=== PATIENT | male | born 1935 | race Caucasian/White ===

== ENCOUNTER → 2018-02-17 09:40 | Outpatient (CLI) | payer MEDICARE, OTHER, SELFPAY ==
[2018-02-17 10:16] LABS: Hemoglobin A1C% w Est Avg Glu 5.6 % (4.0-6.0)
== END ==
PROVIDERS: PCP Student in an Organized Health Care Education/Training Program; Visit Provider Student in an Organized Health Care Education/Training Program
DX: E11.9 Type 2 diabetes mellitus without complications (principal)
CPT/HCPCS: 36415; 83036

== ENCOUNTER → 2018-11-04 06:57 | Outpatient (CLI) | payer MEDICARE, OTHER, SELFPAY ==
[2018-11-04 09:26] LABS: Alanine Aminotransferase 35 IU/L (21-72); Albumin 4.2 g/dL (3.5-5.0); Albumin Globulin Ratio 1.4 (1.0-2.8); Alkaline Phosphatase 56 U/L (38-126); Aspartate Aminotransferase 35 IU/L (17-59); Bilirubin Total 1.2 mg/dL (0.2-1.3); Blood Urea Nitrogen 18 mg/dL (9-20); Calcium 9.1 mg/dL (8.4-10.2); Carbon Dioxide 29 mmol/L (22-32); Chloride 105 mmol/L (98-107); Cholesterol 125 mg/dL (140-199); Estimated Glomerular Filt Rate > 60.0 mL/min (>60); Globulin 3.1 g/dL (1.7-4.1); Glucose 114 mg/dL (80-110); HDL Cholesterol 60 mg/dL (40-60); HEMOLYSIS < 15 (0-50); LDL Cholesterol Calculated 53 mg/dL (<100); Sodium 141 mmol/L (137-145); Total Protein 7.3 g/dL (6.3-8.2); Triglycerides 60 mg/dL (35-150)
== END ==
PROVIDERS: Family Provider Student in an Organized Health Care Education/Training Program; PCP Student in an Organized Health Care Education/Training Program; Visit Provider Internal Medicine Cardiovascular Disease
DX: I10 Essential (primary) hypertension (principal)
CPT/HCPCS: 36415; 80053; 80061

== ENCOUNTER → 2018-12-29 11:55 | Outpatient (CLI) | payer MEDICARE, OTHER, SELFPAY ==
--- NOTE | 2018-12-29 | DI.US.S_ITS ---
PROCEDURE: US CAROTID DOPPLER BI INDICATIONS: STENOSIS TECHNIQUE: Color and pulse Doppler interrogation was performed of both carotid systems, with image documentation and velocity measurements. COMPARISON: [facility], , CAROTID ARTERY DOPPLER BILAT, 03/19/2011, 10:09. FINDINGS: Stenosis calculations are based on SRU (Society of Radiologists in Ultrasound) criteria. Right side: Brachial blood pressure: 123/60 mm Hg. Common carotid artery peak systolic velocity: 149 cm/sec. Internal carotid artery peak systolic velocity: 93 cm/sec. Internal carotid artery end diastolic velocity: 19 cm/sec. External carotid artery peak systolic velocity: 100 cm/sec. ICA/CCA peak systolic ratio: 0.6. Bartlett scale imaging description: Minimal scattered plaque. Percent internal carotid artery stenosis: Less than 50%. Vertebral artery: Flow direction is antegrade. Left side: Brachial blood pressure: 120/58 mm Hg. Common carotid artery peak systolic velocity: 166 cm/sec. Internal carotid artery peak systolic velocity: 89 cm/sec. Internal carotid artery end diastolic velocity: 18 cm/sec. External carotid artery peak systolic velocity: 117 cm/sec. ICA/CCA peak systolic ratio: 0.5. Bartlett scale imaging description: Mild scattered plaque. Percent internal carotid artery stenosis: Less than 50%. Vertebral artery: Flow direction is antegrade. IMPRESSION: Stable less than 50% bilateral internal carotid artery stenosis. Greater than 50% stenosis of the common carotid arteries bilaterally. Dictated by: Og GLORIA Interpreted: Marika Hein MD on 12/29/2018 at 14:26 Approved by: Marika Hein M.D. on 12/29/2018 at 14:42
== END ==
PROVIDERS: PCP Student in an Organized Health Care Education/Training Program; Visit Provider Internal Medicine Cardiovascular Disease
DX: I65.23 Occlusion and stenosis of bilateral carotid arteries (principal)
CPT/HCPCS: 93880

== ENCOUNTER → 2019-02-12 10:40 | Outpatient (CLI) | payer MEDICARE, OTHER, SELFPAY ==
[2019-02-12 11:29] LABS: Hemoglobin A1C% w Est Avg Glu 5.6 % (4.0-6.0)
[2019-02-12 12:02] LABS: Blood Urea Nitrogen 18 mg/dL (9-20); Calcium 9.8 mg/dL (8.4-10.2); Carbon Dioxide 29 mmol/L (22-32); Chloride 102 mmol/L (98-107); Estimated Glomerular Filt Rate > 60.0 mL/min (>60); Glucose 111 mg/dL (80-110); HEMOLYSIS < 15 (0-50); Potassium 4.4 mmol/L (3.4-5.1); Sodium 140 mmol/L (137-145)
== END ==
PROVIDERS: PCP Student in an Organized Health Care Education/Training Program; Visit Provider Student in an Organized Health Care Education/Training Program
DX: E11.9 Type 2 diabetes mellitus without complications (principal); I10 Essential (primary) hypertension
CPT/HCPCS: 36415; 80048; 83036

== ENCOUNTER → 2019-07-29 14:56 | Outpatient (CLI) | payer MEDICARE, OTHER, SELFPAY ==
[2019-07-29 17:11] LABS: Hemoglobin A1C% w Est Avg Glu 5.9 % (4.0-6.0)
== END ==
PROVIDERS: PCP Student in an Organized Health Care Education/Training Program; Referring Provider Student in an Organized Health Care Education/Training Program; Visit Provider Student in an Organized Health Care Education/Training Program
DX: E11.9 Type 2 diabetes mellitus without complications (principal)
CPT/HCPCS: 36415; 83036

== ENCOUNTER → 2019-07-30 08:41 | Outpatient (CLI) | payer MEDICARE, OTHER, SELFPAY ==
[2019-07-30 09:24] LABS: Creatinine Urine Random 68.9 mg/dL
[2019-07-30 09:28] LABS: Microalbumi Creatinin Ratio Ur 23.2 ug/mg CR (<30); Microalbumin Urine Random 1.6 mg/dL (0-1.6)
== END ==
PROVIDERS: PCP Student in an Organized Health Care Education/Training Program; Referring Provider Student in an Organized Health Care Education/Training Program; Visit Provider Student in an Organized Health Care Education/Training Program
DX: E11.9 Type 2 diabetes mellitus without complications (principal)
CPT/HCPCS: 82043; 82570

== ENCOUNTER → 2020-01-25 09:22 | Outpatient (CLI) | payer MEDICARE, OTHER, SELFPAY | PROVIDERS: PCP Student in an Organized Health Care Education/Training Program; Referring Provider Student in an Organized Health Care Education/Training Program; Visit Provider Student in an Organized Health Care Education/Training Program | DX: E11.9 Type 2 diabetes mellitus without complications (principal) | CPT/HCPCS: 36415; 83036 ==

== ENCOUNTER → 2020-07-27 15:31 | Outpatient (CLI) | payer MEDICARE, OTHER, SELFPAY ==
[2020-07-27 16:19] LABS: Hemoglobin A1C% w Est Avg Glu 5.9 % (4.0-6.0)
[2020-07-27 16:29] LABS: Creatinine Urine Random 104.1 mg/dL
[2020-07-27 16:33] LABS: Microalbumi Creatinin Ratio Ur 14.4 ug/mg CR (<30); Microalbumin Urine Random 1.5 mg/dL (0-1.6)
== END ==
PROVIDERS: PCP Student in an Organized Health Care Education/Training Program; Referring Provider Student in an Organized Health Care Education/Training Program; Visit Provider Student in an Organized Health Care Education/Training Program
DX: E11.9 Type 2 diabetes mellitus without complications (principal)
CPT/HCPCS: 36415; 82043; 82570; 83036

== ENCOUNTER → 2021-01-19 06:30 | Outpatient (CLI) | payer MEDICARE, OTHER, SELFPAY ==
[2021-01-19 08:36] LABS: Alanine Aminotransferase 35 IU/L (<50); Albumin 4.3 g/dL (3.5-5.0); Albumin Globulin Ratio 1.5 (1.0-2.8); Alkaline Phosphatase 55 U/L (38-126); Aspartate Aminotransferase 36 IU/L (17-59); BUN Creatinine Ratio 18.7 (6-22); Bilirubin Total 0.8 mg/dL (0.2-1.3); Blood Urea Nitrogen 17 mg/dL (9-20); Calcium 9.3 mg/dL (8.4-10.2); Carbon Dioxide 30 mmol/L (22-32); Chloride 103 mmol/L (98-107); Cholesterol 134 mg/dL (140-199); Estimated Glomerular Filt Rate > 60.0 mL/min (>60); Globulin 2.9 g/dL (1.7-4.1); Glucose 118 mg/dL (80-110); HDL Cholesterol 57 mg/dL (40-60); HEMOLYSIS < 15 (0-50); LDL Cholesterol Calculated 60 mg/dL (<100); Potassium 4.1 mmol/L (3.4-5.1); Sodium 139 mmol/L (137-145); Total Protein 7.2 g/dL (6.3-8.2); Triglycerides 83 mg/dL (35-150)
== END ==
PROVIDERS: PCP Student in an Organized Health Care Education/Training Program; Referring Provider Internal Medicine Cardiovascular Disease; Visit Provider Internal Medicine Cardiovascular Disease
DX: I10 Essential (primary) hypertension (principal)
CPT/HCPCS: 36415; 80053; 80061

== ENCOUNTER 2021-03-30 14:41 | Emergency (ER) | payer MEDICARE, OTHER, SELFPAY ==
[2021-03-30] VITALS (9 sets, daily range): BP systolic 144–166; BP diastolic 66–74; PULSE 65–71; RESP 16–23; TEMP 36.3; O2SAT 97–99
--- NOTE | 2021-03-30 | DI.CT.S_ITS ---
PROCEDURE: CT CERVICAL SPINE WO CON INDICATIONS: fall TECHNIQUE: Noncontrast 3 mm thick sections acquired from the skull base to the T4 level. Sagittal and coronal reformats were then constructed. For radiation dose reduction, the following was used: automated exposure control, adjustment of mA and/or kV according to patient size. COMPARISON: None. FINDINGS: Image quality: Excellent. Bones: No fractures or dislocations. Visualized superior ribs are intact. At least moderate cervical spondylosis. Multilevel facet arthropathy. Multilevel uncovertebral joint hypertrophy. Bilateral significant bony foraminal narrowing from C3-C4 through C5-C6. Soft tissues: Prevertebral soft tissues are normal in thickness. No paravertebral hematomas. No apical pneumothoraces. Pacemaker. Mild bilateral apical pleural parenchymal scarring. IMPRESSION: Cervical spondylitic change. No evidence acute cervical fracture or dislocation. Dictated by: Elton Griffin M.D. on 03/30/2021 at 15:01 Approved by: Elton Griffin M.D. on 03/30/2021 at 15:05
--- NOTE | 2021-03-30 | DI.CT.S_ITS ---
PROCEDURE: CT ANGIO HEAD AND NECK INDICATIONS: fall, cofussion TECHNIQUE: After the administration of intravenous contrast, 1 mm thick sections acquired from the aortic arch through the [place]. Post-contrast 4.5 mm thick sections then re-acquired from the foramen magnum to the vertex. 3-dimensional ublhhol-wcznljdrt-grtesuohjk (MIP) and/or volume rendering reformats were acquired of the central intracranial vasculature and neck separately. COMPARISON: [facility], CT, CT STROKE, 03/30/2021, 14:42. FINDINGS: Image quality: Excellent. BRAIN: CSF spaces: Ventricles are normal in size and shape. Basal cisterns are patent. No extra-axial fluid collections. Brain: No midline shift. No intracranial bleeds or masses. Bartlett-white matter interface appears intact. Age-related volume loss and small vessel ischemic change. Skull and face: Calvarium and facial bones appear intact, without suspicious lesions. Orbits appear normal. Sinuses: Sinuses and mastoids are clear. HEAD CT ANGIOGRAPHY: Anterior circulation: Intracranial internal carotid arteries are normal in size and flow. The flow within the paired anterior cerebral arteries is normal and symmetric. The flow within the middle cerebral arteries is normal and symmetric. The anterior communicating artery is seen. No aneurysms are seen. Posterior circulation: Visualized portions of the vertebral arteries demonstrate normal caliber, and join to form a normal appearing basilar artery. Flow within the posterior cerebral arteries is normal and symmetric. No aneurysms are seen. NECK CT ANGIOGRAPHY: Carotid system: The great vessels demonstrate a conventional anatomy as they arise from the aortic arch. The origins of the common carotid arteries appear patent. The common carotid arteries demonstrate normal caliber and courses. The bifurcation regions are both widely patent. Mild bilateral internal carotid artery stenotic disease. Posterior circulation: The origins of the vertebral arteries both appear widely patent. The more superior extracranial portions of both vertebral arteries also demonstrate normal courses and calibers. They join to form a normal appearing basilar artery. Soft tissues: Visualized neck soft tissues demonstrate no suspicious abnormalities. Bones: No suspicious bony lesions. Visualized cervical spine appears normally aligned. IMPRESSION: 1. Age-related volume loss and small vessel ischemic change. 2. No evidence of acute stroke, hemorrhage, or mass. 3. Unremarkable CTA head. No stenosis, occlusion, aneurysms, or focal filling defects. 4. Mild bilateral proximal internal carotid artery stenotic disease. Comment: Findings were discussed with Dr. Barriga on a 03/30/2021 at 1510 hours Any quantitative measurements of stenosis were performed using NASCET criteria. Dictated by: Elton Griffin M.D. on 03/30/2021 at 15:06 Approved by: Elton Griffin M.D. on 03/30/2021 at 15:12
--- NOTE | 2021-03-30 | DI.CT.S_ITS ---
PROCEDURE: CT STROKE INDICATIONS: fall, confussion TECHNIQUE: Noncontrast 4.5 mm thick angled axial sections acquired from the foramen magnum to the vertex, with coronal reformats. For radiation dose reduction, the following was used: automated exposure control, adjustment of mA and/or kV according to patient size. COMPARISON: CT, HEAD WITHOUT CONTRAST, 06/27/2015, 13:06. FINDINGS: Image quality: Excellent. CSF spaces: Basal cisterns are patent. No extra-axial fluid collections. The ventricles are symmetric in size and shape. Brain: No intracranial bleeds or masses. There is cerebral volume loss for age, with resultant ventricular and sulcal prominence. There are periventricular and deep white matter chronic small vessel ischemic changes. There is intracranial internal carotid artery atherosclerosis. Skull and face: Calvarium and visualized facial bones appear intact, without suspicious lesions. Left frontal soft tissue contusion. Sinuses: Visualized sinuses and mastoids are clear. IMPRESSION: 1. No acute intracranial abnormalities. No intracranial bleed or skull fractures. 2. Cerebral volume loss and chronic microvascular ischemic changes. The result was discussed with Dr. Barriga. This study fulfills neurological imaging criteria for inclusion or exclusion of acute stroke therapies based on available published neurological guidelines. Dictated by: Shirley Kessler M.D. on 03/30/2021 at 14:59 Approved by: Shirley Kessler M.D. on 03/30/2021 at 15:04
--- NOTE | 2021-03-30 14:52 | ED_ITS ---
HPI - Neuro Symptoms/Deficit General Chief Complaint: Trauma Stated Complaint: fall from 2nd step Time Seen by Provider: 03/30/21 14:49 History of Present Illness HPI Narrative: The patient arrives by EMS with a fall, and head injury. He is talking. He has no memory to his day leading up until now. Paramedics noticed asymmetric pupils. He is moving extremities at this time. His described as patient been out of it all day. There is no obvious focal/lateral deficit. After the fall he was unconscious for 5 minutes. He is now alert. He a base commands. He was called as a code stroke because the asymmetric pupils and confusion. He now has a head injury. He is not anticoagulated. After his arrives, the situation clears. He has dementia, he has a poor memory. He was about to walk down steps at home, he paused. His is unsure what happened. He fell 2 steps, hitting his head. He has a left forehead laceration. He had LOC for 5 minutes, but is awake when paramedics arrived. He has a pacemaker. He has no notable rhythm disturbance under textile supervisor care or here. It appears that he stumbled on the steps, fell, and suffered a concussion. However, the patient cannot remember the event. The patient is alert now, but unsure why he is in the ER. The cannot identify whether he passed out before falling or simply tripped. Related Data Home Medications Medication Instructions Recorded Confirmed finasteride 5 mg tablet 5 mg PO DAILY 12/22/18 09/20/20 Previous Rx's Medication Instructions Recorded atorvastatin 10 mg tablet 10 mg PO DAILY #30 tab 10/28/17 terazosin 10 mg capsule 10 mg PO DAILY #30 cap 10/28/17 lisinopril 5 mg tablet (Zestril) 5 mg PO QDAY #90 tab 06/21/20 zolpidem 5 mg tablet 5 mg PO BEDTIME PRN #30 tab 10/19/20 Allergies Allergy/AdvReac Type Severity Reaction Status Date / Time No Known Drug Allergies Allergy Verified 03/30/21 14:57 Review of Systems Review of Systems Narrative: See HPI. No recent illness. Patient has very poor memory, he cannot remember the fall or the transport to the ER. Patient History Medical History (Updated 03/30/21 @ 17:27 by Rick Barriga MD) Acquired cystic kidney disease (Unknown) Allergic rhinitis (Unknown) Benign neoplasm of esophagus (Unknown) BPH (benign prostatic hyperplasia) (Unknown) Cardiac arrhythmia (~2010) Colon polyps (Unknown) COPD (chronic obstructive pulmonary disease) (Unknown) Dementia Depression Diabetes (Unknown) Hyperlipemia (Unknown) Hypertension (Unknown) Sleep apnea (Unknown) Surgical History H/O colonoscopy with polypectomy (Unknown) History of angioplasty S/P placement of cardiac pacemaker (2009) Status post hernia repair Status post transurethral resection of prostate Family History Father Cancer Mother No problems noted. Sister Cancer Social History Smoking Status: Never smoker Smoking Status: Never smoker Exam Initial Vital Signs Initial Vital Signs: Vital Signs Pulse Rate 71 03/30/21 14:51 Pulse Oximetry 97 03/30/21 14:51 Const General: cooperative, comfortable and well developed HENMT Head: other (2 cm left frontal/parietal laceration. No foreign body. Skull is intact.) Ears: TM's normal bilaterally Nose: nares normal Face and sinus: dry mucous membranes Mouth: oral mucosae normal Teeth and gingiva: dentition normal Throat: posterior oropharynx normal Eyes General: appearance normal, both eyes and all related structures Sclera: sclerae normal Cornea: corneas normal Pupils: pupil size on the right 3 and on the left 4 EOM: EOM intact bilaterally Other: Pupil findings appear to be physiologic anisocoria. Neck Neck: normal visual inspection, full ROM, No tender and No JVD Chest Chest: normal inspection of the chest and No localized rib tenderness with anteroposterior compression Resp Effort & Inspection: normal respiratory effort Auscultation: clear to auscultation bilaterally Percussion: percussion normal Cardio Rate: regular rate Rhythm: regular rhythm Heart Sounds: S1 normal and S2 normal GI Inspection: normal to inspection Palpation: soft, No guarding, No mass and No tender Auscultation: normal bowel sounds Back/Spine/Pelvis Back: normal to inspection, No back tenderness and other (No obvious injury) Skin General: no rashes or lesions noted Neuro General: patient alert, patient awake, oriented (Person.) and no focal motor deficits Cranial Nerves: CN's II-XI intact bilaterally Speech: speech normal Motor: muscle tone normal throughout Extrem General: normal to inspection Other: No evidence of upper extremity injury. No hip or pelvis tenderness. Full range of motion throughout lower extremities without evidence of trauma. Psych Other: Confused. Poor historian. Pleasant. Obeys commands. Procedures Laceration Repair Laceration 1: Site: scalp Side (If applicable): left Size (cm): 2 Description: linear Pre-repair: wound explored and irrigated extensively Skin layer closed with: dermabond Course Course Course Narrative: The patient arrives in C-spine immobilization. He is neurologically intact upon arrival. CT of the neck was utilized to clear him from C-spine immobilization. Orders Ordered: ED Orders 03/30/21 14:50 BNP [NT-proBNP (BNP-Adult 18+)] Stat Basic Metabolic Panel Stat Complete Blood Count AUTO DIFF Stat Troponin & CK Cardiac Panel Stat 03/30/21 14:51 Urine Drug Screen, Rapid Stat EKG-12 Lead Stat Sodium Chloride (Normal Saline 0.9%) 1,000 mls @ 150 mls/hr IV CONT JAI Last Admin: 03/30/21 16:44 Dose: Not Given Documented by: MONO Vital Signs Vital signs: Vital Signs - 8 hr 03/30/21 14:51 03/30/21 14:53 03/30/21 15:00 Temperature 97.3 F L Pulse Rate 71 66 65 Respiratory Rate 16 Blood Pressure 163/72 H 148/67 H Pulse Oximetry 97 98 97 03/30/21 15:25 03/30/21 15:30 03/30/21 15:31 Temperature Pulse Rate 70 67 66 Respiratory Rate 22 22 22 Blood Pressure 166/74 H 144/67 H Pulse Oximetry 98 99 98 03/30/21 16:00 03/30/21 16:30 Temperature Pulse Rate 67 68 Respiratory Rate 22 Blood Pressure 145/66 H 147/67 H Pulse Oximetry 99 99 MDM - Neuro Symptoms/Deficit Lab Data Result diagrams: 03/30/21 14:50 03/30/21 14:50 Labs: Lab Results 03/30/21 03/30/21 03/30/21 Range/Units 14:50 14:50 14:50 WBC 4.6 (4.5-11.0) X10^3/uL RBC 3.24 L (4.5-5.9) X10^6/uL Hgb 11.1 L (13.5-17.5) g/dL Hct 32.5 L (41-53) % MCV 100.4 H (80-100) fL MCH 34.3 H (26-34) PG MCHC 34.1 (30-36) % RDW 13.2 (11.6-14.8) % Plt Count 138 L (150-400) X10^3/uL Neut % (Auto) 67.3 (50-75) % Lymph % (Auto) 22.8 L (25-40) % [place] % (Auto) 8.3 (3-14) % Eos % (Auto) 1.0 L (2-4) % Baso % (Auto) 0.6 (0-2) % Neut # (Auto) 3100 (3679-2691) /uL Lymph # (Auto) 1000 L (7112-2736) /uL [place] # (Auto) 400 (0-900) /uL Eos # (Auto) 0 (0-450) /uL Baso # (Auto) 0 (0-100) /uL Sodium 135 L (137-145) mmol/L Potassium 3.8 (3.4-5.1) mmol/L Chloride 100 (98-107) mmol/L Carbon Dioxide 28 (22-32) mmol/L BUN 17 (9-20) mg/dL Creatinine 0.94 (0.66-1.25) mg/dL Estimated GFR > 60.0 (>60) mL/min BUN/Creatinine Ratio 18.1 (6-22) Glucose 123 H (80-110) mg/dL Calcium 8.6 (8.4-10.2) mg/dL Total Creatine Kinase 51 L (55-170) U/L CK-MB (CK-2) TNP CK-MB (CK-2) Rel Index TNP Troponin I < 0.012 (0.01-0.034) ng/mL NT-Pro-B Natriuret Pep 236 (<450) pg/mL Point of Care Testing Glucose POC [address] scan - head: Radiologist's Impression: Verbal report from Radiology, age-related changes but no acute findings. CTA head and neck:: Radiologist's Impression: Verbal report from Radiology, no acute findings concerning for source of CVA. CT - cervical spine: Radiologist's Impression: Verbal report from Radiology, no acute findings. ECG Data Attestation: I personally reviewed and interpreted this ECG as follows: (residential monitor: Paced rhythm. No ectopy.) MDM Narrative Medical decision making narrative: The patient has been clinically stable since arrival. He has been cleared from CVA, or significant head or neck injury. Laceration has been repaired. Vitals have been normal. Cardiac monitoring has been normal. Discharge Plan Departure Patient Disposition: Home Clinical Impression: Laceration of scalp, Presence of cardiac pacemaker, Dementia, Concussion Instructions: Concussion, DI for Laceration Repair of the Scalp Activity Restrictions/Additional Instructions: Tylenol as needed for headaches. Return to ER if symptoms worsen. Follow-up with your chemistry lab instructor. You need to have the pacemaker checked. This can often be done over the phone. Return here as needed. Prescriptions: No Action atorvastatin 10 mg tablet 10 mg PO DAILY Qty: 30 RF: 0 terazosin 10 mg capsule 10 mg PO DAILY Qty: 30 RF: 0 finasteride 5 mg tablet 5 mg PO DAILY RF: 0 lisinopril [Zestril] 5 mg tablet 5 mg PO QDAY Qty: 90 RF: 3 zolpidem 5 mg tablet 5 mg PO BEDTIME PRN (Reason: insomnia) Qty: 30 RF: 5 Referrals: Sb Serna MD [Primary Care Provider] -
[2021-03-30 15:15] LABS: Add Manual Diff / Slide Review NO; Basophils Absolute Auto 0 /uL (0-100); Basophils Percent Auto 0.6 % (0-2); Eosinophils Absolute Auto 0 /uL (0-450); Hematocrit 32.5 % (41-53); Hemoglobin 11.1 g/dL (13.5-17.5); Lymphocytes Absolute Auto 1000 /uL (1100-4500); Lymphocytes Percent Auto 22.8 % (25-40); Mean Corpuscular HGB Conc 34.1 % (30-36); Mean Corpuscular Hemoglobin 34.3 PG (26-34); Mean Corpuscular Volume 100.4 fL (80-100); Monocytes Absolute Auto 400 /uL (0-900); Monocytes Percent Auto 8.3 % (3-14); Neutrophils Absolute Auto 3100 /uL (1500-7000); Neutrophils Percent Auto 67.3 % (50-75); Platelet Count 138 X10^3/uL (150-400); Red Blood Cell Count 3.24 X10^6/uL (4.5-5.9); Red Cell Distribution Width 13.2 % (11.6-14.8); White Blood Cell Count 4.6 X10^3/uL (4.5-11.0)
--- NOTE | 2021-03-30 15:20 | PC.NURSE ---
left pupil not equal,reactive or round
[2021-03-30 15:21] LABS: BUN Creatinine Ratio 18.1 (6-22); Blood Urea Nitrogen 17 mg/dL (9-20); Calcium 8.6 mg/dL (8.4-10.2); Carbon Dioxide 28 mmol/L (22-32); Chloride 100 mmol/L (98-107); Estimated Glomerular Filt Rate > 60.0 mL/min (>60); Glucose 123 mg/dL (80-110); HEMOLYSIS < 15 (0-50); Potassium 3.8 mmol/L (3.4-5.1); Sodium 135 mmol/L (137-145)
[2021-03-30 15:42] LABS: Creatine Kinase 51 U/L (55-170)
[2021-03-30 15:55] LABS: NT-proBNP (BNP-Adult 18+) 236 pg/mL (<450); Troponin I < 0.012 ng/mL (0.01-0.034)
[2021-03-30] MEDS: BACITRACIN OINT 0.9 GM PCKT 4 APPLIC TOP (17:17)
== END 2021-03-30 17:39 | disposition home or self-care (01) ==
PROVIDERS: Emergency Provider Emergency Medicine; PCP Student in an Organized Health Care Education/Training Program
DX: S06.0X9A Concussion with loss of consciousness of unspecified duration, initial encounter (principal); W17.89XA Other fall from one level to another, initial encounter; S01.01XA Laceration without foreign body of scalp, initial encounter; Z95.0 Presence of cardiac pacemaker; F03.90 Unspecified dementia, unspecified severity, without behavioral disturbance, psychotic disturbance, mood disturbance, and anxiety
CPT/HCPCS: 70450; 70496; 70498; 72125; 80048; 82550; 82962; 83880; 84484; 85025; 93005; 93010; 99284; 99285; Q9967

== ENCOUNTER 2021-04-01 06:44 | Emergency (ER) | payer MEDICARE, OTHER, SELFPAY ==
--- NOTE | 2021-04-01 06:55 | DI.RAD.S_ITS ---
PROCEDURE: XR RIBS LT MIN 3V W CXR1V INDICATIONS: fall with pain to left ribs TECHNIQUE: 2 views of the left ribs were acquired, along with a single view chest. COMPARISON: None. FINDINGS: Surgical changes and devices: Left chest wall pacemaker is seen, the leads are noted in the region of right atrium and right ventricle. Bones and chest wall: No definite displaced rib fractures or dislocations. Very subtle contour irregularity involving left posterior lateral 4th and 5th ribs are seen which may represent very subtle nondisplaced rib fractures. No suspicious bony lesions. Overlying soft tissues appear unremarkable. Lungs and pleura: No pleural effusions or pneumothorax. Lungs appear clear. Mediastinum: Mediastinal contours appear normal. Heart size is mildly enlarged. IMPRESSION: No obvious displaced left rib fracture is identified. Questionable contour irregularity involving left posterior lateral 4th and 5th ribs which may represent subtle nondisplaced rib fracture. No focal infiltrate, pleural effusion or pneumothorax. Dictated by: Von Alcantar M.D. on 04/01/2021 at 8:12 Approved by: Von Alcantar M.D. on 04/01/2021 at 8:15
[2021-04-01 06:57] VITALS: BP 165/70; PULSE 95; RESP 15; TEMP 36.6; O2SAT 98; BMI 28.1
--- NOTE | 2021-04-01 06:58 | PC.NURSE ---
Breath sounds clear and equal bilaterally
--- NOTE | 2021-04-01 07:08 | ED_ITS ---
HPI - Fall General Chief Complaint: Fall Stated Complaint: fall, concussion, left side hurts Time Seen by Provider: 04/01/21 07:07 Source: patient Mode of arrival: Ambulatory Limitations: no limitations History of Present Illness HPI Narrative: This is an 85-year-old male who comes emergency department with left-sided chest pain. Patient states he had a fall and was seen here on Friday the . Patient states that he knocked himself out and had a concussion. Patient had a head CT and CT angio which did not show any acute changes. He does not take thinners. He states he presents today because he has had left- sided chest pain into the axilla with movement and particularly when trying to push up out of chairs or roll out of the bed. Patient does not know if he has had any bruising or skin changes. He does not have a lot of pain when he tries to take a deep breath in the room but states earlier this morning he has quite uncomfortable with deep inspiration. He has not had any additional falls. He denies headaches. He denies acute vision changes. No numbness, tingling or weakness. No new neck or back pain. Patient has been ambulating without much issue. He has tried Tylenol and Aleve at home with minimal improvement. Patient does have a history of a pacemaker, prostate surgery and is on atorvastatin, lisinopril, terazosin and finasteride. He lives independently in his home. His lives in an apartment on the same property. Related Data Home Medications Medication Instructions Recorded Confirmed finasteride 5 mg tablet 5 mg PO DAILY 12/22/18 09/20/20 Previous Rx's Medication Instructions Recorded atorvastatin 10 mg tablet 10 mg PO DAILY #30 tab 10/28/17 terazosin 10 mg capsule 10 mg PO DAILY #30 cap 10/28/17 lisinopril 5 mg tablet (Zestril) 5 mg PO QDAY #90 tab 06/21/20 zolpidem 5 mg tablet 5 mg PO BEDTIME PRN #30 tab 10/19/20 tramadol 50 mg tablet (Ultram) 50 mg PO Q6H PRN #14 tab 04/01/21 Allergies Allergy/AdvReac Type Severity Reaction Status Date / Time No Known Drug Allergies Allergy Verified 03/30/21 14:57 Review of Systems Review of Systems ROS Unobtainable: All systems reviewed & are unremarkable except as noted in HPI and below Patient History Medical History Acquired cystic kidney disease (Unknown) Allergic rhinitis (Unknown) Benign neoplasm of esophagus (Unknown) BPH (benign prostatic hyperplasia) (Unknown) Cardiac arrhythmia (~2009) Colon polyps (Unknown) COPD (chronic obstructive pulmonary disease) (Unknown) Dementia Depression Diabetes (Unknown) Hyperlipemia (Unknown) Hypertension (Unknown) Sleep apnea (Unknown) Surgical History H/O colonoscopy with polypectomy (Unknown) History of angioplasty S/P placement of cardiac pacemaker (2009) Status post hernia repair Status post transurethral resection of prostate Family History Father Cancer Mother No problems noted. Sister Cancer Social History Smoking Status: Former smoker Smoking Status: Former smoker Substance Use Type: does not use Exam Narrative Exam Narrative: GEN: Patient appears in mild distress. HEAD: Patient has ecchymosis on the right scalp as well as several small abrasions and healing superficial lacerations. No raccoon/Smith sign. NECK: Nontender, painless range of motion, trachea midline Negative for Nexus criteria, there is no mid line tenderness, distracting injury, altered mental status, neuro deficit, recent EtOH. EYES: PERRLA, EOMI ENT: External inspection normal, trachea is midline, Nares are clear, no septal hematoma, airway is normal and with normal occlusion. RESP: Chest is nontender to palpation and has symmetric movement, no ecchymosis, breath sounds are normal no crackles, wheezes or rales, no ecchymosis. No subcutaneous emphysema. CVS: Heart sounds are normal, no murmur noted, No JVD. ABG/GI: Nontender, soft, normal bowel sounds, no distention, no organomegaly. NEURO: Oriented AOx3, neuro is grossly intact, sensation and motor is normal all 4 extremities moving, cranial nerves II through XII are intact, GCS is 15 PSYCH: Normal mood and affect SKIN: Intact other than noted above warm and dry, no crepitus and without decubitus, patient has several areas of ecchymosis on his forearms. BACK: No CVA tenderness, no vertebral tenderness, no step-off's, no crepitus EXT: Atraumatic, normal range of motion of extremities. No bony tenderness of the clavicle, left shoulder, arm. Patient has full range of motion. Equal muscle strength in upper extremities. 2+ radial pulse. Initial Vital Signs Initial Vital Signs: Vital Signs Temperature 97.8 F 04/01/21 06:57 Pulse Rate 95 H 04/01/21 06:57 Respiratory Rate 15 04/01/21 06:57 Blood Pressure 165/70 H 04/01/21 06:57 Pulse Oximetry 98 04/01/21 06:57 Course Orders Ordered: ED Orders 04/01/21 06:55 XR ribs LT min 3V w CXR1V Stat Vital Signs Vital signs: Vital Signs - 8 hr 04/01/21 06:57 04/01/21 08:56 Temperature 97.8 F Pulse Rate 95 H 64 Respiratory Rate 15 18 Blood Pressure 165/70 H 154/72 H Pulse Oximetry 98 96 MDM - Fall Imaging Data Chest x-ray: Radiologist's Impression: [address] [address] XRay Report Signed Patient: Ervin Guerrero MR#: [id number] : 1935 Acct:[id number] Age/Sex: 85 / M Date of Service: 04/01/21 Loc: ED Accession Number: [id number] ?? Procedure: XR ribs LT min 3V w CXR1V Ordering Provider: Cheryl Bae D.O. PROCEDURE:? XR RIBS LT MIN 3V W CXR1V ? INDICATIONS:? fall with pain to left ribs ? TECHNIQUE:? 2 views of the left ribs were acquired, along with a single view chest.? ? COMPARISON:? None. ? FINDINGS:? ? Surgical changes and devices:? Left chest wall pacemaker is seen, the leads are noted in the region of right atrium and right ventricle. ? Bones and chest wall:? No definite displaced rib fractures or dislocations.? Very subtle contour irregularity involving left posterior lateral 4th and 5th ribs are seen which may represent very subtle nondisplaced rib fractures.? No suspicious bony lesions.? Overlying soft tissues appear unremarkable.? ? Lungs and pleura:? No pleural effusions or pneumothorax.? Lungs appear clear.? ? Mediastinum:? Mediastinal contours appear normal.? Heart size is mildly enlarged. ? IMPRESSION:? No obvious displaced left rib fracture is identified.? Questionable contour irregularity involving left posterior lateral 4th and 5th ribs which may represent subtle nondisplaced rib fracture.? No focal infiltrate, pleural effusion or pneumothorax.? ? ? Dictated by: Von Alcantar M.D. on 04/01/2021 at 8:12 ? ? Approved by: Von Alcantar M.D. on 04/01/2021 at 8:15?? MDM Narrative Medical decision making narrative: This is an 85-year-old male comes emergency department with left-sided rib pain. Patient had a fall on Friday. He was evaluated had a head CT and CT angio of the neck which did not show any acute changes. Patient has continued to have left-sided rib pain. Patient has irregularity of 4th and 5th ribs which may be a rib fracture. Patient is not particularly tender but that is the right location. He has had some difficulty with pain management. Plan for incentive spirometer, Tylenol and tramadol for pain management and patient also has ibuprofen at home as well. Incentive spirometer provided here in the department. Patient did excellent on attempt. not have any red flag symptoms at this time that would warrant repeat imaging of his head. Questions answered. Return precautions discussed. Patient's is at bedside for this conversation. Patient feels comfortable with this plan. Discharge Plan Departure Patient Disposition: Home Clinical Impression: Fall, Closed rib fracture Instructions: DI for Rib Fracture Activity Restrictions/Additional Instructions: Follow-up with your physician in the next week if your symptoms are not improving or if you need additional pain medication. Your xray shows a possible rib fracture on the left. Use a pillow or your arm to splint when you are about to sneeze, cough or similar activities. Use incentive spirometer hourly while awake. You may take Tylenol up to a 1000 mg every 8 hours as needed for pain. If this is an adequate you may take Ultram 1-2 tablets every 6 hours as needed for pain in addition. This medication can make you sleepy do not drive, perform hazardous activities or make any major decisions while taking it. This medication will make you constipated please take a stool softener such as Colace once to twice daily until stools are soft and regular. Prescription sent to [facility] in [place] Please return for new or worsening chest pain, headaches, neck or back pain, lightheadedness or passing out, new vision changes, new numbness, tingling or weakness. Shortness of breath, vomiting or other new or concerning symptoms. Prescriptions: New tramadol [Ultram] 50 mg tablet 50 mg PO Q6H PRN (Reason: pain) Qty: 14 RF: 0 No Action atorvastatin 10 mg tablet 10 mg PO DAILY Qty: 30 RF: 0 terazosin 10 mg capsule 10 mg PO DAILY Qty: 30 RF: 0 finasteride 5 mg tablet 5 mg PO DAILY RF: 0 lisinopril [Zestril] 5 mg tablet 5 mg PO QDAY Qty: 90 RF: 3 zolpidem 5 mg tablet 5 mg PO BEDTIME PRN (Reason: insomnia) Qty: 30 RF: 5 Referrals: Sb Serna MD [Primary Care Provider] -
[2021-04-01 08:56] VITALS: BP 154/72; PULSE 64; RESP 18; O2SAT 96
== END 2021-04-01 08:56 | disposition home or self-care (01) ==
PROVIDERS: Emergency Provider Emergency Medicine; PCP Student in an Organized Health Care Education/Training Program
DX: S22.32XA Fracture of one rib, left side, initial encounter for closed fracture (principal); W18.30XA Fall on same level, unspecified, initial encounter
CPT/HCPCS: 71101; 99283

== ENCOUNTER → 2021-08-10 16:07 | Outpatient (CLI) | payer MEDICARE, OTHER, SELFPAY ==
[2021-08-10 16:50] LABS: Hemoglobin A1C% w Est Avg Glu 5.9 % (4.0-6.0)
[2021-08-10 17:20] LABS: Creatinine Urine Random 138.9 mg/dL
[2021-08-10 17:25] LABS: Microalbumi Creatinin Ratio Ur 42.4 ug/mg CR (<30); Microalbumin Urine Random 5.9 mg/dL (0-1.6)
== END ==
PROVIDERS: PCP Student in an Organized Health Care Education/Training Program; Referring Provider Student in an Organized Health Care Education/Training Program; Visit Provider Student in an Organized Health Care Education/Training Program
DX: E11.9 Type 2 diabetes mellitus without complications (principal)
CPT/HCPCS: 36415; 82043; 82570; 83036

== ENCOUNTER → 2021-09-07 13:41 | Outpatient (CLI) | payer MEDICARE, OTHER, SELFPAY ==
[2021-09-07 15:39] LABS: Microalbumin Urine Random 0.8 mg/dL (0-1.6)
== END ==
PROVIDERS: PCP Student in an Organized Health Care Education/Training Program; Referring Provider Student in an Organized Health Care Education/Training Program; Visit Provider Student in an Organized Health Care Education/Training Program
DX: E11.9 Type 2 diabetes mellitus without complications (principal)
CPT/HCPCS: 82043; 82570

== ENCOUNTER → 2021-10-16 08:24 | Outpatient (CLI) | payer MEDICARE, OTHER, SELFPAY ==
--- NOTE | 2021-10-16 08:27 | DI.RAD.S_ITS ---
PROCEDURE: XR RIBS RT 2V INDICATIONS: Rib injury TECHNIQUE: 4 views of the right ribs were acquired. COMPARISON: None. FINDINGS: Surgical changes and devices: None. Bones and chest wall: There is a displaced right anterior 6th rib fracture. No other displaced rib fractures visualized. Lungs and pleura: The visualized lung appears clear. No pleural effusions or pneumothorax are visible. IMPRESSION: Displaced anterior 6th rib fracture. Dictated by: Cora Vance M.D. on 10/16/2021 at 10:27 Approved by: Cora Vance M.D. on 10/16/2021 at 10:34
== END ==
PROVIDERS: PCP Student in an Organized Health Care Education/Training Program; Referring Provider Student in an Organized Health Care Education/Training Program; Visit Provider Student in an Organized Health Care Education/Training Program
DX: S20.211A Contusion of right front wall of thorax, initial encounter (principal); S22.31XA Fracture of one rib, right side, initial encounter for closed fracture
CPT/HCPCS: 71100

== ENCOUNTER 2022-05-14 15:30 | Outpatient (RCR) | payer MEDICARE, OTHER, SELFPAY ==
--- NOTE | 2022-04-02 16:20 | ST.OP.ACL ---
Visit Care Team Role Provider Type Sb Serna MD Attending Provider Physician Family Provider Primary Care Provider Referring Provider Specialty: Internal Medicine Address: [address] [place] [address], [address], [place], [address] Email: [email or web address] Adult Cognitive Linguistic Evaluation FLAKE DRIER Adult Cognitive Linguistic Eval Start: 04/02/22 15:58 Freq: Status: Active Protocol: Document 04/02/22 15:58 ZS (Rec: 04/02/22 16:18 ZS [id number]) Adult Cognitive Linguistic Evaluation Session Time Visit Start Time 14:30 Visit Stop Time 15:20 Total Visit Minutes 50 Visit Information Visit Number Initial Evaluation Plan of Care Dates 04/02/2022 - 08/16/2022 Insurance Information Medicare Referral Referring Provider Dr. Serna Reason for Referral Memory decline over past several years Setting Assessment Location Outpatient Care Visit Type Note Type Initial evaluation Next Note Type Next Note Type Treatment Note Patient Information Identification Type Name Patient History Solomon is an 86-year old male referred to speech therapy for ongoing memory decline over several years with significant decline following fall off roof a few months ago. Memory deficits characterized by not remembering conversations he was not attending to, episodes of disorientation while driving, and experiencing inappropriate familiarity to novel things. Per medical history, pt experiences sleep disruption due to pain, pain medications, and frequent urination (every 2 hours) at night. Solomon reported he is no longer driving at this time. Language(s) Spoken in the Home [place] Occupation Status retired Subjective Patient Report Solomon arrived on time accompanied by his , who was present for the session. He presented with a wet/gurgly vocal quality when speaking. 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 Mental Status Alert,Responsive,Cooperative Formal Assessment Standardized Test/Screener Type Cognitive Linguistic Quick Test (CLQT) Administration Complete Results Results of the CLQT place Solomon' s attention, memory, language, visuospatial skills, and clock drawing in the mildly impaired range and his executive functions as moderately impaired. Cut scores indicated below average performance on clock drawing, symbol trails, generative naming, and design generation. When drawing clock, Solomon became confused about how to indicate what time it was and asked FLAKE DRIER if he should [place] the numbers. He did draw clock hands, though they were very short and originated from the numbers rather than the center , despite drawing the center of the clock and stating they start here. Solomon required assistance during second symbol trails task, connecting pairs of shapes, but not creating a trail between paired shapes. Significant difficulty observed with generative naming and design generation tasks with minimal generation and increased confusion observed. He generated 4 designs, 1 of which was copied and 1 of which had only 3 lines. However, during instruction and demonstration of task, Solomon stated I can rotate these shapes and it would be different. Recommend speech therapy to provide compensatory strategies for increased memory when completing ADLs. Recommend continued conversations with PCP regarding improved sleep, as this likely has a significant impact on cognitive skills. Findings/Results Cognitive Function Mild-moderately impaired Prognosis Prognosis Fair Based on Cognitive status,Comorbidities ,Duration of symptoms/severity ,Time since onset Plan of Care Speech-Language Treatment Yes Frequency 1x per week Duration 45 minutes Patient/Caregiver Education Described results of evaluation,Patient expressed understanding of evaluation, Patient expressed agreement with goals and treatment plans ,Family/caregivers expressed understanding of evaluation, Family/caregivers expressed agreement with goals and treatment plan,Patient requires further education/ training,Family/caregivers require further education/ training Short Term Goals 1. Solomon will exhibit increased attention to conversation to increase recall of conversational details 10 minutes after conversation. 2. Solomon will participate in education regarding cognitive skills and impact of sleep on said skills.
--- NOTE | 2022-04-02 16:21 | ST.OPPOC ---
Physical, Occupational & Speech Therapy At [facility] Visit Care Team Role Provider Type Sb Serna MD Attending Provider Physician Family Provider Primary Care Provider Referring Provider Address: [address] [place] [address], [address], [place], [address] Speech Pathology Plan of Care Plan of Care Dates 04/02/2022 - 08/16/[address] Serna Patient History Solomon is an 86-year old male referred to speech therapy for ongoing memory decline over several years with significant decline following fall off roof a few months ago. Memory deficits characterized by not remembering conversations he was not attending to, episodes of disorientation while driving, and experiencing inappropriate familiarity to novel things. Per medical history, pt experiences sleep disruption due to pain, pain medications, and frequent urination (every 2 hours) at night. Solomon reported he is no longer driving at this time. Short Term Goals 1. Solomon will exhibit increased attention to conversation to increase recall of conversational details 10 minutes after conversation. 2. Solomon will participate in education regarding cognitive skills and impact of sleep on said skills. Comment: Electronically Signed by: SCOTT Wasserman 04/02/22 2538 If you are in agreement with this Plan of Care, please return a signed and dated copy. I have reviewed this Plan of Care and certify that the skilled therapy services above are required to meet the patient?s needs. Physician Signature Date Printed Name and Credentials Clinical Instructor Signature Printed Name and Credentials
--- NOTE | 2022-04-09 15:03 | ST.OPTN ---
Visit Care Team Role Provider Type Sb Serna MD Attending Provider Physician Family Provider Primary Care Provider Referring Provider Address: [address] [place] [address], [address], [place], [address] POULTRY SEXER Treatment Note POULTRY SEXER Treatment Note Start: 04/09/22 14:52 Freq: Status: Active Protocol: Document 04/09/22 14:52 ZS (Rec: 04/09/22 15:03 ZS [id number]) Speech Pathology Treatment Note Session Time Visit Start Time 13:30 Visit Stop Time 14:20 Total Visit Minutes 50 Visit Information Visit Number 1 Plan of Care Dates 04/02/2022 - 08/16/2022 Insurance Information Medicare Setting Treatment Setting Outpatient Care Visit Type Note Type Treatment Note Next Note Type Next Note Type Treatment Note General Information Patient History Solomon is an 86-year old male referred to speech therapy for ongoing memory decline over several years with significant decline following fall off roof a few months ago. Memory deficits characterized by not remembering conversations he was not attending to, episodes of disorientation while driving, and experiencing inappropriate familiarity to novel things. Per medical history, pt experiences sleep disruption due to pain, pain medications, and frequent urination (every 2 hours) at night. Solomon reported he is no longer driving at this time. Results of the CLQT place Solomon' s attention, memory, language, visuospatial skills, and clock drawing in the mildly impaired range and his executive functions as moderately impaired. Cut scores indicated below average performance on clock drawing, symbol trails, generative naming, and design generation. When drawing clock, Solomon became confused about how to indicate what time it was and asked POULTRY SEXER if he should [place] the numbers. He did draw clock hands, though they were very short and originated from the numbers rather than the center , despite drawing the center of the clock and stating they start here. Solomon required assistance during second symbol trails task, connecting pairs of shapes, but not creating a trail between paired shapes. Significant difficulty observed with generative naming and design generation tasks with minimal generation and increased confusion observed. He generated 4 designs, 1 of which was copied and 1 of which had only 3 lines. However, during instruction and demonstration of task, Solomon stated I can rotate these shapes and it would be different. Recommend speech therapy to provide compensatory strategies for increased memory when completing ADLs. Recommend continued conversations with PCP regarding improved sleep, as this likely has a significant impact on cognitive skills. Subjective Identification Type Name Identification Reconciled With Medical Record Others Present Family Observations/Patient Presentation Solomon arrived on time accompanied by his , who was present for the session. inquired about cognitive handout and information regarding inappropriate familiarity and cognitive skills. Chief Complaint(s) Cognitive Objective Short Term Goals 1. Solomon will exhibit increased attention to conversation to increase recall of conversational details 10 minutes after conversation. 2. Solomon will participate in education regarding cognitive skills and impact of sleep on said skills. Treatment Activities Provided education regarding cognitive skills, attention, and sleep. Discussed results of CLQT. Discussed Goal, Plan, Do, Review as strategy to improve executive functions with daily tasks. Practiced 1- back game and discussed use of card games to strengthen cognitive skills. Discussed format of speech therapy sessions and therapy content. Pt and expressed understanding and agreement with POC. Assessment Impairments Identified Cognitive communication Assessment of Improvement Pt was observed to answer questions with tangentially related information. He expressed understanding of concepts described, though recall of this information and application was not clear given use of new terminology in descriptions of current ADLs. Pt's observed to take notes and demonstrated understanding in rephrasing information back to POULTRY SEXER. Solomon completed 1-back game, though required 3 reminders to wait until a card was covered before naming it. Solomon to try Goal, Plan, Do, Review, practice 1-back, and practice increased attention to task as HEP. Reviewed with Patient Goals,Progress Being Made,Home Exercise Program Patient/Caregiver Understanding Fair Plan Amount of Therapy Recommended 3-4 Months Frequency of Treatment Once a Week Length of Session 45 Minutes Therapeutic Contents Client Education,Cognitive- Linguistic Training,Home Exercise Program Provided Patient/Caregiver Instruction Home Exercise Program,Plan of Care,Questions/Concerns Therapy Recommendations Continue with Current Program
--- NOTE | 2022-04-16 17:18 | ST.OPTN ---
Visit Care Team Role Provider Type Sb Serna MD Attending Provider Physician Family Provider Primary Care Provider Referring Provider Address: [address] [place] [address], [address], [place], [address] CONSULTANT DIETITIAN Treatment Note CONSULTANT DIETITIAN Treatment Note Start: 04/09/22 14:52 Freq: Status: Active Protocol: Document 04/16/22 17:14 ZS (Rec: 04/16/22 17:18 ZS [id number]) Speech Pathology Treatment Note Session Time Visit Start Time 15:30 Visit Stop Time 16:30 Total Visit Minutes 60 Visit Information Visit Number 2 Plan of Care Dates 04/02/2022 - 08/16/2022 Insurance Information Medicare Setting Treatment Setting Outpatient Care Visit Type Note Type Treatment Note Next Note Type Next Note Type Treatment Note General Information Patient History Solomon is an 86-year old male referred to speech therapy for ongoing memory decline over several years with significant decline following fall off roof a few months ago. Memory deficits characterized by not remembering conversations he was not attending to, episodes of disorientation while driving, and experiencing inappropriate familiarity to novel things. Per medical history, pt experiences sleep disruption due to pain, pain medications, and frequent urination (every 2 hours) at night. Solomon reported he is no longer driving at this time. Results of the [facility] place Solomon' s attention, memory, language, visuospatial skills, and clock drawing in the mildly impaired range and his executive functions as moderately impaired. Cut scores indicated below average performance on clock drawing, symbol trails, generative naming, and design generation. When drawing clock, Solomon became confused about how to indicate what time it was and asked CONSULTANT DIETITIAN if he should [place] the numbers. He did draw clock hands, though they were very short and originated from the numbers rather than the center , despite drawing the center of the clock and stating they start here. Solomon required assistance during second symbol trails task, connecting pairs of shapes, but not creating a trail between paired shapes. Significant difficulty observed with generative naming and design generation tasks with minimal generation and increased confusion observed. He generated 4 designs, 1 of which was copied and 1 of which had only 3 lines. However, during instruction and demonstration of task, Solomon stated I can rotate these shapes and it would be different. Recommend speech therapy to provide compensatory strategies for increased memory when completing ADLs. Recommend continued conversations with PCP regarding improved sleep, as this likely has a significant impact on cognitive skills. Subjective Identification Type Name Identification Reconciled With Medical Record Others Present Family Observations/Patient Presentation Solomon arrived on time accompanied by his , who was present for the session. inquired about cognitive handout and information regarding inappropriate familiarity and cognitive skills. Chief Complaint(s) Cognitive Objective Short Term Goals 1. Solomon will exhibit increased attention to conversation to increase recall of conversational details 10 minutes after conversation. 2. Solomon will participate in education regarding cognitive skills and impact of sleep on said skills. Treatment Activities Provided education regarding memory and attention as it relates to recall of conversational details. Reviewed Goal, Plan, Do, Review as strategy to improve executive functions with daily tasks. Reviewed 1-back game and discussed use of card games to strengthen cognitive skills. Pt and expressed understanding and agreement with POC. Assessment Impairments Identified Cognitive communication Assessment of Improvement Pt was observed to answer questions with tangentially related information and exhibited poor topic maintenance when sharing information. He expressed understanding of concepts described, though recall of this information and application was not clear given use of new terminology in descriptions of current ADLs. Pt's observed to take notes and demonstrated understanding in rephrasing information back to CONSULTANT DIETITIAN. Solomon completed 1-back game, though required reminders to wait until a card was covered before naming it and which way to flip cards. Significant confusion noted with Goal, Plan, Do, Review strategy, as Solomon was unable to generalize information from the example scenario to other scenarios. Solomon to practice 1-back game, connecting salient features from provided paragraphs to personal information, and practice increased attention to task as HEP. Reviewed with Patient Goals,Progress Being Made,Home Exercise Program Patient/Caregiver Understanding Fair Plan Amount of Therapy Recommended 3-4 Months Frequency of Treatment Once a Week Length of Session 45 Minutes Therapeutic Contents Client Education,Cognitive- Linguistic Training,Home Exercise Program Provided Patient/Caregiver Instruction Home Exercise Program,Plan of Care,Questions/Concerns Therapy Recommendations Continue with Current Program
--- NOTE | 2022-04-23 16:30 | ST.OPTN ---
Visit Care Team Role Provider Type Sb Serna MD Attending Provider Physician Family Provider Primary Care Provider Referring Provider Address: [address] [place] [address], [address], [place], [address] TEST PREPARATION TUTOR Treatment Note TEST PREPARATION TUTOR Treatment Note Start: 04/09/22 14:52 Freq: Status: Active Protocol: Document 04/23/22 16:30 ZS (Rec: 04/30/22 14:25 ZS [id number]) Speech Pathology Treatment Note Session Time Visit Start Time 15:30 Visit Stop Time 16:15 Total Visit Minutes 45 Visit Information Visit Number 3 Plan of Care Dates 04/02/2022 - 08/16/2022 Insurance Information Medicare Setting Treatment Setting Outpatient Care Visit Type Note Type Treatment Note Next Note Type Next Note Type Treatment Note General Information Patient History Solomon is an 86-year old male referred to speech therapy for ongoing memory decline over several years with significant decline following fall off roof a few months ago. Memory deficits characterized by not remembering conversations he was not attending to, episodes of disorientation while driving, and experiencing inappropriate familiarity to novel things. Per medical history, pt experiences sleep disruption due to pain, pain medications, and frequent urination (every 2 hours) at night. Solomon reported he is no longer driving at this time. Results of the [facility] place Solomon' s attention, memory, language, visuospatial skills, and clock drawing in the mildly impaired range and his executive functions as moderately impaired. Cut scores indicated below average performance on clock drawing, symbol trails, generative naming, and design generation. When drawing clock, Solomon became confused about how to indicate what time it was and asked TEST PREPARATION TUTOR if he should [place] the numbers. He did draw clock hands, though they were very short and originated from the numbers rather than the center , despite drawing the center of the clock and stating they start here. Solomon required assistance during second symbol trails task, connecting pairs of shapes, but not creating a trail between paired shapes. Significant difficulty observed with generative naming and design generation tasks with minimal generation and increased confusion observed. He generated 4 designs, 1 of which was copied and 1 of which had only 3 lines. However, during instruction and demonstration of task, Solomon stated I can rotate these shapes and it would be different. Recommend speech therapy to provide compensatory strategies for increased memory when completing ADLs. Recommend continued conversations with PCP regarding improved sleep, as this likely has a significant impact on cognitive skills. Subjective Identification Type Name Identification Reconciled With Medical Record Others Present Family Observations/Patient Presentation Solomon arrived on time accompanied by his , who was present for the session. inquired about cognitive handout and information regarding inappropriate familiarity and cognitive skills. Chief Complaint(s) Cognitive Objective Short Term Goals 1. Solomon will exhibit increased attention to conversation to increase recall of conversational details 10 minutes after conversation. 2. Solomon will participate in education regarding cognitive skills and impact of sleep on said skills. Treatment Activities Practiced conversational skills and provided education regarding topic maintenance. Assessment Impairments Identified Cognitive communication Assessment of Improvement Pt was observed to answer questions with tangentially related information and exhibited poor topic maintanence when sharing information. He exhibited 3 topic shifts during unstructured conversation and when reviewing conversational topics, pt stated he was not off topic and proceeded to defend topic connection and subject of conversation. Educated pt on difference between valuable topic to discuss and topics that are relevant/related to current discussion. Pt expressed understanding. Significant difficulty identifying alternative topics to replace off-topic subjects. Pt observed to provide questions he might ask to fictitious character rather than conversational partner and was unable to come up with appropriate question for conversational partner. Reviewed with Patient Goals,Progress Being Made,Home Exercise Program Patient/Caregiver Understanding Fair Plan Amount of Therapy Recommended 3-4 Months Frequency of Treatment Once a Week Length of Session 45 Minutes Therapeutic Contents Client Education,Cognitive- Linguistic Training,Home Exercise Program Provided Patient/Caregiver Instruction Home Exercise Program,Plan of Care,Questions/Concerns Therapy Recommendations Continue with Current Program
--- NOTE | 2022-04-30 14:28 | ST.OPTN ---
Visit Care Team Role Provider Type Sb Serna MD Attending Provider Physician Family Provider Primary Care Provider Referring Provider Address: [address] [place] [address], [address], [place], [address] COTTON JAMMER Treatment Note COTTON JAMMER Treatment Note Start: 04/09/22 14:52 Freq: Status: Active Protocol: Document 04/30/22 14:26 ZS (Rec: 04/30/22 14:28 ZS [id number]) Speech Pathology Treatment Note Session Time Visit Start Time 11:30 Visit Stop Time 12:15 Total Visit Minutes 45 Visit Information Visit Number 4 Plan of Care Dates 04/02/2022 - 08/16/2022 Insurance Information Medicare Setting Treatment Setting Outpatient Care Visit Type Note Type Treatment Note Next Note Type Next Note Type Treatment Note General Information Patient History Solomon is an 86-year old male referred to speech therapy for ongoing memory decline over several years with significant decline following fall off roof a few months ago. Memory deficits characterized by not remembering conversations he was not attending to, episodes of disorientation while driving, and experiencing inappropriate familiarity to novel things. Per medical history, pt experiences sleep disruption due to pain, pain medications, and frequent urination (every 2 hours) at night. Solomon reported he is no longer driving at this time. Results of the [facility] place Solomon' s attention, memory, language, visuospatial skills, and clock drawing in the mildly impaired range and his executive functions as moderately impaired. Cut scores indicated below average performance on clock drawing, symbol trails, generative naming, and design generation. When drawing clock, Solomon became confused about how to indicate what time it was and asked COTTON JAMMER if he should [place] the numbers. He did draw clock hands, though they were very short and originated from the numbers rather than the center , despite drawing the center of the clock and stating they start here. Solomon required assistance during second symbol trails task, connecting pairs of shapes, but not creating a trail between paired shapes. Significant difficulty observed with generative naming and design generation tasks with minimal generation and increased confusion observed. He generated 4 designs, 1 of which was copied and 1 of which had only 3 lines. However, during instruction and demonstration of task, Solomon stated I can rotate these shapes and it would be different. Recommend speech therapy to provide compensatory strategies for increased memory when completing ADLs. Recommend continued conversations with PCP regarding improved sleep, as this likely has a significant impact on cognitive skills. Subjective Identification Type Name Identification Reconciled With Medical Record Others Present Family Observations/Patient Presentation Solomon arrived on time accompanied by his , who was present for the session. Chief Complaint(s) Cognitive Objective Short Term Goals 1. Solomon will exhibit increased attention to conversation to increase recall of conversational details 10 minutes after conversation. 2. Solomon will participate in education regarding cognitive skills and impact of sleep on said skills. Treatment Activities Practiced conversational skills and provided education regarding topic maintenance. Assessment Impairments Identified Cognitive communication Assessment of Improvement Pt was observed to answer questions with tangentially related information and exhibited poor topic maintenance when sharing information. He exhibited 1 topic shift during unstructured conversation and when reviewing conversational topics, pt did not identify error. He generated 1 alternative subject to replace off-topic with and continued conversation from that point. Continued difficulty with topic maintenance, though improvement noted since previous session. Reviewed with Patient Goals,Progress Being Made,Home Exercise Program Patient/Caregiver Understanding Fair Plan Amount of Therapy Recommended 3-4 Months Frequency of Treatment Once a Week Length of Session 45 Minutes Therapeutic Contents Client Education,Cognitive- Linguistic Training,Home Exercise Program Provided Patient/Caregiver Instruction Home Exercise Program,Plan of Care,Questions/Concerns Therapy Recommendations Continue with Current Program
--- NOTE | 2022-05-14 16:21 | ST.OPTN ---
Visit Care Team Role Provider Type Sb Serna MD Attending Provider Physician Family Provider Primary Care Provider Referring Provider Address: [address] [place] [address], [address], [place], [address] WEB PAGE DESIGNER Treatment Note WEB PAGE DESIGNER Treatment Note Start: 04/09/22 14:52 Freq: Status: Active Protocol: Document 05/14/22 16:17 ZS (Rec: 05/14/22 16:21 ZS [id number]) Speech Pathology Treatment Note Session Time Visit Start Time 15:30 Visit Stop Time 16:15 Total Visit Minutes 45 Visit Information Visit Number 5 Plan of Care Dates 04/02/2022 - 08/16/2022 Insurance Information Medicare Setting Treatment Setting Outpatient Care Visit Type Note Type Treatment Note Next Note Type Next Note Type Treatment Note General Information Patient History Solomon is an 86-year old male referred to speech therapy for ongoing memory decline over several years with significant decline following fall off roof a few months ago. Memory deficits characterized by not remembering conversations he was not attending to, episodes of disorientation while driving, and experiencing inappropriate familiarity to novel things. Per medical history, pt experiences sleep disruption due to pain, pain medications, and frequent urination (every 2 hours) at night. Solomon reported he is no longer driving at this time. Results of the [facility] place Solomon' s attention, memory, language, visuospatial skills, and clock drawing in the mildly impaired range and his executive functions as moderately impaired. Cut scores indicated below average performance on clock drawing, symbol trails, generative naming, and design generation. When drawing clock, Solomon became confused about how to indicate what time it was and asked WEB PAGE DESIGNER if he should [place] the numbers. He did draw clock hands, though they were very short and originated from the numbers rather than the center , despite drawing the center of the clock and stating they start here. Solomon required assistance during second symbol trails task, connecting pairs of shapes, but not creating a trail between paired shapes. Significant difficulty observed with generative naming and design generation tasks with minimal generation and increased confusion observed. He generated 4 designs, 1 of which was copied and 1 of which had only 3 lines. However, during instruction and demonstration of task, Solomon stated I can rotate these shapes and it would be different. Recommend speech therapy to provide compensatory strategies for increased memory when completing ADLs. Recommend continued conversations with PCP regarding improved sleep, as this likely has a significant impact on cognitive skills. Subjective Identification Type Name Identification Reconciled With Medical Record Others Present Family Observations/Patient Presentation Solomon arrived on time accompanied by his , who was present for the session. Chief Complaint(s) Cognitive Objective Short Term Goals 1. Solomon will exhibit increased attention to conversation to increase recall of conversational details 10 minutes after conversation. 2. Solomon will participate in education regarding cognitive skills and impact of sleep on said skills. Treatment Activities Practiced conversational skills during unstructured conversation and discussed external memory strategies for improved recall. Assessment Impairments Identified Cognitive communication Assessment of Improvement Pt was observed to maintain topic well during unstructured conversation. He exhibited difficulty recalling events from past weekend and details of conversation over the weekend. Pt asked if WEB PAGE DESIGNER could reschedule appointment at [facility] and exhibited confusion regarding purpose of appointment. provided review of appointment purpose and Solomon did not accept explanation. Discussed option to call that clinic to discuss purpose of appointment and record answers on sticky note or other external strategy for recall of details . Discussed use of journal or recording device to aid in recall of conversations. Pt expressed interest in recording device. Reviewed with Patient Goals,Progress Being Made,Home Exercise Program Patient/Caregiver Understanding Fair Plan Amount of Therapy Recommended 3-4 Months Frequency of Treatment Once a Week Length of Session 45 Minutes Therapeutic Contents Client Education,Cognitive- Linguistic Training,Home Exercise Program Provided Patient/Caregiver Instruction Home Exercise Program,Plan of Care,Questions/Concerns Therapy Recommendations Continue with Current Program
--- NOTE | 2022-05-21 16:16 | ST.OPDS ---
Visit Care Team Role Provider Type Sb Serna MD Attending Provider Physician Family Provider Primary Care Provider Referring Provider Address: [address] [place] [address], [address], [place], [address] VETERINARIAN POULTRY Treatment Note VETERINARIAN POULTRY Treatment Note Start: 04/09/22 14:52 Freq: Status: Active Protocol: Document 05/21/22 16:14 ZS (Rec: 05/21/22 16:15 ZS [id number]) Speech Pathology Treatment Note Visit Information Plan of Care Dates 04/02/2022 - 08/16/2022 Insurance Information Medicare Setting Treatment Setting Outpatient Care Visit Type Note Type Discharge Summary General Information Patient History Solomon is an 86-year old male referred to speech therapy for ongoing memory decline over several years with significant decline following fall off roof a few months ago. Memory deficits characterized by not remembering conversations he was not attending to, episodes of disorientation while driving, and experiencing inappropriate familiarity to novel things. Per medical history, pt experiences sleep disruption due to pain, pain medications, and frequent urination (every 2 hours) at night. Solomon reported he is no longer driving at this time. Results of the CLQT place Solomon' s attention, memory, language, visuospatial skills, and clock drawing in the mildly impaired range and his executive functions as moderately impaired. Cut scores indicated below average performance on clock drawing, symbol trails, generative naming, and design generation. When drawing clock, Solomon became confused about how to indicate what time it was and asked VETERINARIAN POULTRY if he should [place] the numbers. He did draw clock hands, though they were very short and originated from the numbers rather than the center , despite drawing the center of the clock and stating they start here. Solomon required assistance during second symbol trails task, connecting pairs of shapes, but not creating a trail between paired shapes. Significant difficulty observed with generative naming and design generation tasks with minimal generation and increased confusion observed. He generated 4 designs, 1 of which was copied and 1 of which had only 3 lines. However, during instruction and demonstration of task, Solomon stated I can rotate these shapes and it would be different. Recommend speech therapy to provide compensatory strategies for increased memory when completing ADLs. Recommend continued conversations with PCP regarding improved sleep, as this likely has a significant impact on cognitive skills. Subjective Observations/Patient Presentation Solomon last week and will be discharged from therapy. Objective Short Term Goals 1. Solomon will exhibit increased attention to conversation to increase recall of conversational details 10 minutes after conversation. 2. Solomon will participate in education regarding cognitive skills and impact of sleep on said skills. Assessment Impairments Identified Cognitive communication Assessment of Improvement Discharging from therapy as pt has . Plan Amount of Therapy Recommended No Further Therapy Frequency of Treatment No Further Therapy Therapy Recommendations Discharge from Speech Therapy Reason for Discharge Pt has .
== END 2022-05-28 11:45 ==
LOC: SP 15:30
PROVIDERS: Family Provider Student in an Organized Health Care Education/Training Program; PCP Student in an Organized Health Care Education/Training Program; Referring Provider Student in an Organized Health Care Education/Training Program; Visit Provider Student in an Organized Health Care Education/Training Program
DX: R41.3 Other amnesia (principal)
CPT/HCPCS: 96125; 97129; 97130

== ENCOUNTER 2022-05-15 15:39 | Emergency (ER) | payer MEDICARE, OTHER, SELFPAY ==
[2022-05-15] VITALS (10 sets, daily range): BP systolic 51–65; BP diastolic 35–42; PULSE 78–92; RESP 14–22; O2SAT 92–97
--- NOTE | 2022-05-15 | DI.RAD.S_ITS ---
PROCEDURE: XR CHEST 1V INDICATIONS: TRAUMA TECHNIQUE: One view of the chest was acquired. COMPARISON: [facility], , CHEST 2 VIEW, 12/07/2009, 9:37. FINDINGS: Surgical changes and devices: The patient is intubated. The amanda is not well characterized on this study. Lungs and pleura: There are diffuse interstitial radiopacities bilaterally. No pneumothorax. No pleural effusion. Mediastinum: Mediastinal contours appear normal. Heart size is enlarged. Bones and chest wall: No suspicious bony lesions. Overlying soft tissues appear unremarkable. IMPRESSION: Diffuse interstitial radiopacities suggesting pulmonary edema or ARDS. Dictated by: Cora Vance M.D. on 05/15/2022 at 16:07 Approved by: Cora Vance M.D. on 05/15/2022 at 16:08
--- NOTE | 2022-05-15 | DI.CT.S_ITS ---
PROCEDURE: CT HEAD/BRAIN WO CON INDICATIONS: TRAUMA TECHNIQUE: Noncontrast 4.5 mm thick angled axial sections acquired from the foramen magnum to the vertex, with coronal and sagittal reformats. For radiation dose reduction, the following was used: automated exposure control, adjustment of mA and/or kV according to patient size. COMPARISON: [facility], CT, HEAD WITHOUT CONTRAST, 06/27/2015, 13:06. FINDINGS: Image quality: Excellent. Please see a detailed description of the bony injuries on the associated maxillofacial CT. There is a moderate amount of parenchymal and subarachnoid hemorrhage within the left frontal lobe. There is likely mild herniation of the left frontal lobe through the large comminuted calvarial fracture. No midline shift. No intraventricular hemorrhage. No subdural hematoma. The right hemisphere, the posterior left hemisphere and the cerebellum appear intact without hemorrhage or sulcal effacement. The basal cisterns are patent. No ankle herniation. IMPRESSION: 1. Left frontal subarachnoid and parenchymal hemorrhage with probable mild left frontal lobe herniation through the large calvarial defect. 2. Extensive facial fractures, left globe rupture and soft tissue injury is detailed on the associated maxillofacial CT. Dictated by: Cora Vance M.D. on 05/15/2022 at 16:36 Approved by: Cora Vance M.D. on 05/15/2022 at 16:38
--- NOTE | 2022-05-15 | DI.CT.S_ITS ---
PROCEDURE: CT CERVICAL SPINE WO CON INDICATIONS: TRAUMA TECHNIQUE: Noncontrast 3 mm thick sections acquired from the skull base to the T4 level. Sagittal and coronal reformats were then constructed. For radiation dose reduction, the following was used: automated exposure control, adjustment of mA and/or kV according to patient size. COMPARISON: [facility], CT, CT CERVICAL SPINE WO CON, 03/30/2021, 14:42. FINDINGS: Image quality: Excellent. Bones: No fractures or dislocations. 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 Visualized superior ribs are intact. Soft tissues: Patchy airspace opacities are present within the left apex and are incompletely characterized on this limited view of the chest. IMPRESSION: 1. No acute cervical spine injury. 2. Patchy left apical airspace opacities suspicious for aspiration. Dictated by: Cora Vance M.D. on 05/15/2022 at 16:27 Approved by: Cora Vance M.D. on 05/15/2022 at 16:30
--- NOTE | 2022-05-15 | DI.CT.S_ITS ---
PROCEDURE: CT FACIAL BONES WO CON INDICATIONS: TRAUMA TECHNIQUE: Noncontrast 2.5 mm thick axial images acquired from the mandible through the frontal sinuses, with coronal and sagittal reformatting. For radiation dose reduction, the following was used: automated exposure control, adjustment of mA and/or kV according to patient size. COMPARISON: [facility], CT, CT HEAD/BRAIN WO CON, 05/15/2022, 15:57. FINDINGS: Image quality: Excellent. Bones: There is a comminuted left frontal bone fracture which extends through the left frontal sinus, and inferiorly into the left nasal bones, ethmoid air cells, posterior left orbital wall, zygoma, lateral orbital wall, medial orbital wall, and the inferior orbital wall. The left pterygoid plates are fractured. The nasal septum is fractured. There are multiple comminuted fractures of the left maxilla. There are multiple comminuted left maxillary sinus fractures. Soft tissues: Gas, shrapnel, and intraparenchymal hemorrhage is present throughout the left frontal lobe. There is likely herniation of the left frontal lobe through the comminuted left calvarial fracture. The left globe is ruptured and there is extensive intraconal hematoma and subcutaneous emphysema. There is marked preorbital soft tissue swelling. Right globe is intact. IMPRESSION: Extensive bony and soft tissue trauma as above with intracranial hemorrhage, herniation of the left frontal lobe and rupture of the left globe. Dictated by: Cora Vance M.D. on 05/15/2022 at 16:30 Approved by: Cora Vance M.D. on 05/15/2022 at 16:35
[2022-05-15] MEDS: LORazepam 2 MG/ML INJ IV ×2 (16:32→17:09)
[2022-05-15] MEDS: MORPHINE 4 MG/ML INJ IV (16:32)
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
[2022-05-15] MEDS: MORPHINE 50 MG in DEXTROSE 5 % IN WATER 45 ML IV (17:08)
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
--- NOTE | 2022-05-15 18:05 | RT ---
pt placed on vent without incident. et tube secure and transported to ct and back to er 2. Bag mask unit at [facility] with peep valve. Upon arrival to Room 2 pt withdrawl of care per Dr. Bae.
--- NOTE | 2022-05-15 18:40 | PC.NURSE ---
Time of 1839,verified by US. No cardiac activity on US
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
--- NOTE | 2022-05-15 20:26 | PC.NURSE ---
Coroners office here for pt - belongings left with patient/transported with pt - no keys noted - coroners office states they will call if found
--- NOTE | 2022-05-15 20:31 | PC.NURSE ---
Left at this time with coroners team
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
== END 2022-05-15 20:32 | disposition expired ==
PROVIDERS: Emergency Provider Emergency Medicine; Family Provider Student in an Organized Health Care Education/Training Program; PCP Student in an Organized Health Care Education/Training Program
DX: S01.93XA Puncture wound without foreign body of unspecified part of head, initial encounter (principal)
CPT/HCPCS: 70450; 70486; 71045; 72125; 94002; 94799; 96365; 96366; 96375; 96376; 99285; 99291; G0390; J2060; J2270